=== PATIENT | female | born 1960 | race Caucasian/White ===

== ENCOUNTER → 2018-03-26 09:35 | Outpatient (CLI) | payer MEDICARE, MEDICAID, SELFPAY ==
[2018-03-14 09:51] VITALS: BMI 20.8
[2018-03-14 15:55] VITALS: BMI 20.5
--- NOTE | 2018-03-26 09:38 | AVDS_ITS ---
Reason For Study: Steal syndrome RIGHT RT [place] artery - 138.0 cm/s Volume flow -2573 cc/min RT Anastomosis -200.0 cm/s RT Prox graft - 160.0 cm/s Volume flow - 2529 cc/min RT Mid graft - 208.0 cm/s Volume flow - 29021 cc/min RT Dist graft - 134.0 cm/s Volume flow - 2329 cc/min RT Outflow - 110.0 cm/s Volume flow - 1472 cc/min Radial artery - 12.5 cm/s Ulnar artery - 56.8 cm/s. Interpretation Summary Large flow right upper extremity fistula with diminished radial and ulnar flow consistent with a severe arterial steal. Aneurysmal change 2.6 x 3.15cm mid fistula and 1.84 x 2.8 cm distal fistula Ordering Physician: Harvey Vaughn Referring Physician: Harvey Vaughn Performed By: Beverly Dalton RVT
== END ==
PROVIDERS: Family Provider Internal Medicine; PCP Internal Medicine; Referring Provider Surgery; Visit Provider Surgery
DX: T82.898A Other specified complication of vascular prosthetic devices, implants and grafts, initial encounter (principal); Z99.2 Dependence on renal dialysis
CPT/HCPCS: 93990

== ENCOUNTER 2018-04-04 12:20 | Day surgery (SDC) | payer MEDICARE, MEDICAID, SELFPAY ==
[2018-03-14 15:55] VITALS: BMI 20.5
[2018-03-30 11:56] LABS: Hematocrit 37.6 % (37-47); Hemoglobin 11.2 g/dl (12.0-15.0); Mean Corp Hgb Conc 29.8 g/gl (32-36); Mean Corpuscular Hgb 32.9 pg (27.0-32.0); Mean Corpuscular Volume 110.6 fL (81-99); Platelet Count 216 K/mm3 (150-450); RBC Distribution Width CV 19.7 % (11.6-14.6); RBC Distribution Width SD 77.5 fl (35.1-43.9); White Blood Count 8.2 K/mm3 (4.4-11.0)
[2018-03-30 11:58] LABS: Scan Indicated on CBC? Y/N YES- FLAGS NOTED
[2018-03-30 12:21] LABS: Anion Gap 10 (5-15); BUN 22 mg/dL (7-18); BUN/Creat Ratio 4.3 RATIO (10-20); Chloride 108 mmol/L (98-107); Creatinine, Serum 5.06 mg/dL (0.55-1.02); EST Glomerular Filtration Rate 9 mL/min (>60); Est Glom Filt Rate - Afr Amer 11 mL/min (>60); Glucose 79 mg/dL (74-106); Potassium 3.8 mmol/L (3.5-5.1); Sodium Level 145 mmol/L (136-145)
[2018-04-01 08:38] VITALS: BMI 21.2
[2018-04-04] VITALS (8 sets, daily range): BP systolic 78–116; BP diastolic 48–67; PULSE 58–86; RESP 16–18; TEMP 36.4–37.3; O2SAT 88–96; BMI 20.9
--- NOTE | 2018-04-04 13:43 | DCINST_ITS ---
Discharge Diet: Renal Diet Discharge Activity: May Not Drive - for 1-2 days or while taking narcotic pain medications., May Shower, May Take a Tub Bath - in 5 days. Lifting Restrictions: 5 pounds Keep extremity elevated above heart level: - - Keep arm elevated above the heart level for 3 days. Additional Activity Instructions:: Exercise hand vigorously with a stress ball. Call your doctor if your incision/area has: Continuous Slow Oozing, Sudden Increased Bleeding - apply pressure and call your doctor., Increased Pain/ Swelling, Increased Redness, Foul Smelling Discharge Call your doctor if you observe: Fever of 101 or Higher Suture Line Care: Avoid Pulling/Pushing, Avoid Pinching/Bending Cleanse incision/area with: Keep Dressing Clean & Dry Additional Dressing/Incision Instructions:: Change or remove dressing in one day. May protect with a gauze bandaid. Allergies/Adverse Reactions: Allergies Penicillins Allergy (Unknown, Verified 04/02/18 15:11) Hives Sulfa (Sulfonamide Antibiotics) Allergy (Unknown, Verified 04/02/18 15:11) Unknown SODIUM PENTATHOL Allergy (Uncoded 04/02/18 15:11) Nausea/Vom/Diarrhea Medications to take at Discharge Aspirin [Aspirin EC] 81 mg PO DAILY 03/20/16 Atorvastatin Calcium [Lipitor] 40 mg PO QHS 03/20/16 Clonazepam [Klonopin] 1 mg PO QHS 03/20/16 Lamotrigine [Lamictal] 200 mg PO DAILY 03/20/16 Umeclidinium Brm/Vilanterol Tr [Anoro Ellipta 62.5-25 Mcg INH] 1 puff IH DAILY 03/20/16 Zolpidem Tartrate [Ambien] 10 mg PO QHS 03/20/16 cinacalcet 30 mg tablet 30 mg PO QDAY 03/15/17 sevelamer carbonate 800 mg tablet 800 mg PO TID 03/15/17 furosemide 80 mg tablet 80 mg PO DAILY 12/11/17 lurasidone 40 mg tablet 60 mg PO QHS 12/11/17 vitamin B complex and vitamin C no.20-folic acid 1 mg capsule 1 cap PO DAILY 12/11/17 biotin 5,000 mcg sublingual tablet 5,000 mcg SUBLINGUAL DAILY 03/14/18 Cholecalciferol (VIT D3) [Vitamin D3] 1,000 unit PO DAILY 04/02/18 Primary Care Physician: Linda Allen MD [Primary Care Provider] - Test Results: Test results from this visit will be discussed in further detail at your follow- up appointment, if applicable. Please Follow Up With: Harvey Vaughn MD - [phone] When: Call to make an appointment for follow up in 1 week.
[2018-04-04] MEDS: Bupivacaine 0.5% PF 10 ML VIAL (14:00)
--- NOTE | 2018-04-04 14:43 | OP.PCM_ITS ---
Problem List (1) Arterial steal syndrome Status: Acute Report of Operation Date of Procedure: 04/04/18 Pre-Operative Diagnosis: Right upper extremity transposed basilic vein to brachial artery hemodialysis fistula with arterial steal syndrome to the hand Post-Operative Diagnosis: Same Surgery/Procedure Performed:: Right upper extremity fistula revision with placement of a 6 mm diameter bovine pericardium restricting cuff Description of Surgical Findings:: Timeout and informed consent was obtained. 57-year-old female was taken the operating placement table she underwent monitored anesthesia care clindamycin 900 mg were given intravenous preoperatively the right upper extremity was sterilely prepped and draped 1% lidocaine mixed 50-50 with 0.5% Marcaine was used as a local anesthetic. A total of 7 cc was used. A transverse incision was made at the previous incision sharp and blunt dissection was used to obtain circumferential control around the proximal portion of the fistula at the previously placed bovine patch cuff was identified. I took a new 8 x 80 mm bovine patch and I trimmed it to approximately 6 mm in diameter I wrapped that around the proximal portion of the fistula I used 6-0 Prolene sutures to help restrict and secure. We utilized duplex ultrasound to measure velocities. The patient had a preoperative duplex evaluation showing greater than 2000 cc/min of volume flow. With placement of careful Prolene sutures I was able to get the flow rate down on average between 508 100 cc/min. Inspection of the hand revealed it was nice and pink and now there is a 2+ palpable radial pulse. I felt that the fistula itself still had good flow. I felt that I had achieved adequate restriction. The wound was closed with a deep layer of interrupted 3-0 Vicryl and a superficial layer of running 4-0 Monocryl. Steri-Strips Telfa OpSite dressing applied. Sponge and instrument and needle counts were reported the surgeon be correct. Blood loss was minimal. She tolerated the procedure well was taken to the recovery area in satisfactory condition without apparent complication. Impression successful flow restriction right upper extremity AV fistula with imp roved hand viability noted intraoperatively Harvey Vaughn M.D., F.A.C.S. Type of Anesthesia:: Local MAC Anesthesiologist: Tulio Alba
== END 2018-04-04 16:16 | disposition home or self-care (01) ==
LOC: SDC 12:21 → AC 12:24
PROVIDERS: Family Provider Internal Medicine; PCP Internal Medicine; Referring Provider Surgery; Visit Provider Surgery
PROC: (CPT 36832; principal; 2018-04-04 14:15)
DX: T82.898A Other specified complication of vascular prosthetic devices, implants and grafts, initial encounter (principal); Y83.8 Other surgical procedures as the cause of abnormal reaction of the patient, or of later complication, without mention of misadventure at the time of the procedure; N18.5 Chronic kidney disease, stage 5; Z85.828 Personal history of other malignant neoplasm of skin; F31.9 Bipolar disorder, unspecified; F41.9 Anxiety disorder, unspecified; Z79.899 Other long term (current) drug therapy; Z79.82 Long term (current) use of aspirin; I12.0 Hypertensive chronic kidney disease with stage 5 chronic kidney disease or end stage renal disease; I25.2 Old myocardial infarction; Z87.891 Personal history of nicotine dependence; J44.9 Chronic obstructive pulmonary disease, unspecified; E78.5 Hyperlipidemia, unspecified; Z99.2 Dependence on renal dialysis
CPT/HCPCS: 01844; 36832; 36415; 80048; 85027

== ENCOUNTER → 2018-04-25 12:55 | Outpatient (CLI) | payer MEDICARE, MEDICAID, SELFPAY ==
[2018-04-04 12:51] VITALS: BMI 20.9
--- NOTE | 2018-04-25 12:57 | AVDS_ITS ---
Reason For Study: Arterial steal AV fistula graft RUE RIGHT Prox [place] artery - 121 cm/s Volume flow - 1061 cc/min Prox Anastomosis - 145.0 cm/s Prox graft - 114 cm/s / 541 cm/s Volume flow - 2443 cc/min Mid graft - 104 cm/s Volume flow - 3595 cc/min Dist graft Unable to obtain measurable waveform Outflow - 69.5 cm/s Volume flow - 968 cc/min Radial artery - 11.7 cm/s Ulnar artery - 91.5 cm/s. Interpretation Summary Aneurysmal change right upper AV fistula 1.46 x 2.82cm Increased volume flow analysis consistent with arterial steal and diminished radial artery antegrade flow No improvement from te previous exam of 03/26/18 Ordering Physician: Harvey Vaughn Referring Physician: Linda Allen M.D. Performed By: Beverly Dalton RVT
== END ==
PROVIDERS: Family Provider Internal Medicine; PCP Internal Medicine; Referring Provider Surgery; Visit Provider Surgery
DX: I77.9 Disorder of arteries and arterioles, unspecified (principal); Z99.2 Dependence on renal dialysis
CPT/HCPCS: 93990

== ENCOUNTER 2019-05-09 20:36 | Emergency (ER) | payer MEDICARE, MEDICAID, SELFPAY ==
[2018-04-04 12:51] VITALS: BMI 20.9
[2019-05-09 20:36] VITALS: BP 162/89; PULSE 86; RESP 18; TEMP 36.5; O2SAT 95; BMI 24.0
--- NOTE | 2019-05-09 20:52 | ED.VIS.GEN ---
History of Present Illness Chief Complaint: Other, Pain/Inj Detail of Chief Complaint: Pain, swelling discoloration right arm Informant: Patient Onset: Days - Approximately 2 days ago Context: Sudden Onset Timing: Continuous Quality: Pain Location: Right anterior medial arm Current Severity: Mild Maximum Severity: Moderate Worsened by: Palpation Relieved by: Nothing Associated Symptoms: Loss of thrill and pulse Narrative: Patient is a 59-year-old woman with history of end-stage renal disease not on hemodialysis who had a fistula placed right arm by Dr. Harvey Vaughn approximately 2 years ago. She states it is never been accessed. She is scheduled to see her auditing specialist in the near future. She presents because of discoloration, swelling and pain right arm that started approximate 2 days ago. She denies fever, chills night sweats. There is no history of trauma. She denies paresthesia, anesthesia or motor weakness. She states she does not feel the rumbling when she palpates the area. Prior similar symptoms: No Recent Illness/Hospitalization: No - Past Medical History (1) Arterial steal syndrome Status: Acute (2) COPD (chronic obstructive pulmonary disease) Status: Acute (3) Hyperlipidemia Status: Acute (4) Presence of surgically created arteriovenous shunt for hemodialysis Status: Acute (5) Renal failure Status: Acute (6) S/P hysterectomy Status: Acute Past Medical History - Allergies and Home Meds Allergies/Adverse Reactions: Allergies Penicillins Allergy (Unknown, Verified 05/09/19 20:39) Hives Sulfa (Sulfonamide Antibiotics) Allergy (Unknown, Verified 05/09/19 20:39) Unknown SODIUM PENTATHOL Allergy (Uncoded 05/09/19 20:39) Nausea/Vom/Diarrhea Primary Care Physician: Linda Allen MD [Primary Care Provider] - Prior records reviewed: Yes Surgical History: - - Fistula right arm Lives: Alone Smoking Status: Former smoker Alcohol: None Drugs: None Review of Systems General: Denies: Chills, Fever, Malaise, Subjective, Sweats Eyes: Denies: Visual changes - bilaterally, Blurred Vision - bilaterally Cardiovascular: Denies: Chest pain, Palpitations, Heart racing Respiratory: Denies: Dyspnea, Cough, Dyspnea on exertion Gastrointestinal: Denies: Abdominal pain, Nausea, Vomiting, Diarrhea, Melena, Hematochezia Musculoskeletal: Reports: Swelling, Extremity Pain. Denies: Myalgias, Arthralgias, Neck pain, Back pain Skin: Denies: Rash, Wounds Neurological: Denies: Weakness, Parasthesia, Numbness Allergy: Denies: Uticaria, Swelling of the mouth Physical Exam Vital Signs/Narrative: Vital Signs Temp Pulse Resp BP Pulse Ox 05/09/19 20:36 97.7 F L 86 18 162/89 H 95 Inital Vital Signs reviewed: Yes General: Well nourished, Well developed, No Acute Distress Head: Normocephalic, Atraumatic. Negative for: Trauma, Tenderness Eyes: Perrl, EOMI. Negative for: Pale conjunctiva, Scleral icterus ENT: Moist mucous membranes, No rhinorrhea, TM's clear Neck: Supple, Nontender, No lymphadenopathy, No JVD Cardiovascular: Regular rate, Regular rhythm, No murmurs, Normal S1, Normal S2 Extremities: Tenderness, Edema, - - There is swelling with mild edema and discoloration of the right arm. There is no thrill, palpable pulse over the fistula site. Skin: Normal color, No rash. Negative for: Cyanosis, Diaphoresis, Jaundice, No Trauma Neurological: Alert, Oriented x3, Cranial nerves II-XII grossly intact, Normal Strength, Normal Sensation Psychological: Normal affect, Normal Mood Diagnostic/Tx/Re-eval - Medical Decision Making Case was discussed with Dr. Mercado who is on-call for Dr. Harvey Vaughn. He agrees patient needs arterial/AV vascular lab study to confirm clot. The atrial venous fistula study was ordered and will have patient call for time tomorrow morning when lab is open.. ED Disposition - Plan for ED Patient: Disposition: Home or Assisted Living Diagnosis: AV fistula occlusion Instructions: Arteriovenous (AV) Fistula for Dialysis Prescriptions: Oxycodone HCl/Acetaminophen [Percocet 5/325] 1 tab PO Q6H PRN PRN 3 Days #12 tab PRN Reason: Pain Prescription Printed Referrals: Linda Allen MD [Primary Care Provider] - Harvey Vaughn MD [STAFF PHYSICIAN] - As soon as possible Additional Instructions: Call tomorrow morning to confirm appointment time. Telephone number is [phone].
[2019-05-09] MEDS: oxyCODONE HCl Cr 10 MG Tablet PO (21:09)
[2019-05-09 21:17] VITALS: BP 162/86; PULSE 86; RESP 18; O2SAT 95
== END 2019-05-09 21:18 | disposition home or self-care (01) ==
LOC: ED 21:13
PROVIDERS: Emergency Provider Emergency Medicine; PCP Internal Medicine
DX: T82.898A Other specified complication of vascular prosthetic devices, implants and grafts, initial encounter (principal); N18.6 End stage renal disease; E78.5 Hyperlipidemia, unspecified; J44.9 Chronic obstructive pulmonary disease, unspecified; Z79.82 Long term (current) use of aspirin; Z79.899 Other long term (current) drug therapy; Z87.891 Personal history of nicotine dependence
CPT/HCPCS: 99283

== ENCOUNTER → 2019-05-12 14:01 | Outpatient (CLI) | payer MEDICARE, MEDICAID, SELFPAY ==
[2019-05-09 20:36] VITALS: BMI 24.0
--- NOTE | 2019-05-12 14:03 | AVDS_ITS ---
Reason For Study: Pain RIGHT Right inflow artery 53.2 cm/sec. Right inflow artery 223.3 ml/min. Prox anastamosis 26.2 cm/sec. Prox anastamosis 46.2 ml/min. Graft is occluded throughout. Outflow vein 23.9 cm/sec. Outflow vein 181.2 ml/min. Cephalic vein at shoulder has venous flow noted. Cephalic vein below antecube is compressible. Ulnar and Radial artery color flow noted. Prelim to Rachel. Interpretation Summary Acute thrombosis transposed right upper arm cephalic vein to brachial artery arteriovenous hemodialysis fistula. Patent right cephalic vein at the shoulder Patent right brachial, radial, and ulnar arteries Ordering Physician: Harvey Vaughn Referring Physician: Linda Allen M.D. Performed By: Maame Gray RVT
== END ==
PROVIDERS: PCP Internal Medicine; Referring Provider Surgery; Visit Provider Surgery
DX: T82.868A Thrombosis due to vascular prosthetic devices, implants and grafts, initial encounter (principal); M79.89 Other specified soft tissue disorders; M79.603 Pain in arm, unspecified
CPT/HCPCS: 93990

== ENCOUNTER → 2020-07-05 10:48 | Outpatient (CLI) | payer MEDICARE, MEDICAID, SELFPAY ==
[2020-07-01 13:45] VITALS: BMI 24.0
--- NOTE | 2020-07-05 10:52 | AVDS_ITS ---
Reason For Study: Dependence on renal dialysis graft RIGHT Right inflow artery 42.1 cm/sec. Right inflow artery 90 ml/min. Prox anastamosis 45 cm/sec. Prox anastamosis 83.9 ml/min. Prox graft, 24.6 cm/sec. Prox graft, 278.2 ml/min. Graft is occluded throughout. Cephalic vein [place] and below antecube is compressible. Ulnar artery, 49.7 cm/sec. Radial artery, 20.4 cm/sec. Area of concern is in prox graft with vascular flow noted. Area with flow measures 1.03 x 1.31 x 0.81 cm. No abnormal flow outside of vessel. VL/AV Fistula/Dialysis Graft Scan Interpretation Summary Occluded right upper extremity brachial to cephalic arteriovenous hemodialysis fistula. Area of aneurysmal change with partial thrombosis adjacent to the anastomosis. This area measures 1.03 x 1.31 x 0.81 cm Normal right brachial artery flow at 42.1 cm/s. Normal right ulnar flow at 49.7 cm/s. Slightly diminished right radial flow at 20.4 cm/s Ordering Physician: Felicity Hinds Referring Physician: Linda Allen M.D. Performed By: Maame Gray RVT
== END ==
PROVIDERS: PCP Internal Medicine; Referring Provider Physician Assistant; Visit Provider Physician Assistant
DX: I72.1 Aneurysm of artery of upper extremity (principal); Z99.2 Dependence on renal dialysis
CPT/HCPCS: 93990

== ENCOUNTER 2020-08-18 06:37 | Day surgery (SDC) | payer MEDICARE, MEDICAID, SELFPAY ==
[2020-07-05 05:34] VITALS: BMI 24.0
--- NOTE | 2020-08-12 10:58 | EKG12_ITS ---
Test Reason : PRE OP Blood Pressure : / mmHG Vent. Rate : 058 BPM Atrial Rate : 058 BPM P-R Int : 156 ms QRS Dur : 076 ms QT Int : 430 ms P-R-T Axes : 069 040 071 degrees QTc Int : 422 ms Sinus bradycardia Septal infarct , age undetermined Abnormal ECG Confirmed by RANJIT CLARKE, DAREN ([id number]), video clerk BUDDY ARENAS ([id number]) on 08/13/2020 10:48:40 A M Referred By: Harvey Vaughn Confirmed By:JARRED CHURCH MD
[2020-08-12 11:36] LABS: Hematocrit 37.3 % (37-47); Hemoglobin 11.5 g/dL (12.0-15.0); Mean Corp Hgb Conc 30.8 g/dL (32-36); Mean Corpuscular Hgb 33.7 pg (27.0-32.0); Mean Corpuscular Volume 109.4 fL (81-99); Mean Platelet Vol. 9.6 fl (6.2-12.0); Platelet Count 195 K/mm3 (150-450); RBC Distribution Width CV 13.3 % (11.6-14.6); RBC Distribution Width SD 54.1 fl (35.1-43.9); Red Blood Count 3.41 M/mm3 (4.2-5.4); White Blood Count 5.9 K/mm3 (4.4-11.0)
[2020-08-12 12:09] LABS: Anion Gap 4 (5-15); BUN 12 mg/dL (7-18); BUN/Creat Ratio 6.7 RATIO (10-20); Chloride 111 mmol/L (98-107); Creatinine, Serum 1.78 mg/dL (0.55-1.02); EST Glomerular Filtration Rate 31 mL/min (>60); Est Glom Filt Rate - Afr Amer 38 mL/min (>60); Glucose 82 mg/dL (74-106); Sodium Level 140 mmol/L (136-145)
--- NOTE | 2020-08-18 07:04 | HP.PCM_ITS ---
History and Physical Date of Admission: 08/18/20 Intake Visit Reasons: Fistula Chief Complaint: recheck fistula, hand numbness Portfolio Administrator Required: No Is patient in pain?: No Allergies Penicillins Allergy (Unknown, Verified 07/01/20 13:41) Hives Sulfa (Sulfonamide Antibiotics) Allergy (Unknown, Verified 07/01/20 13:41) Unknown SODIUM PENTATHOL Allergy (Uncoded 07/01/20 13:41) Nausea/Vom/Diarrhea Medications aspirin 81 mg PO DAILY 03/20/16 [History Confirmed 07/05/20] clonazepam 1 mg PO QHS 03/20/16 [History Confirmed 07/05/20] lamotrigine 200 mg PO DAILY 03/20/16 [History Confirmed 07/05/20] umeclidinium-vilanterol 1 puff IH DAILY 03/20/16 [History Confirmed 07/05/20] zolpidem 10 mg PO QHS 03/20/16 [History Confirmed 07/05/20] biotin 5,000 mcg sublingual tablet 5,000 mcg SUBLINGUAL DAILY 03/14/18 [History Confirmed 07/05/20] Prednisone 5 mg PO QHS 05/09/19 [History Confirmed 07/05/20] bupropion HCl 150 mg PO DAILY 05/09/19 [History Confirmed 07/05/20] lurasidone 60 mg PO DAILY 05/09/19 [History Confirmed 07/05/20] valacyclovir 500 mg PO DAILY 05/09/19 [History Confirmed 07/05/20] atorvastatin 40 mg tablet 20 mg PO QHS tab 07/01/20 [History Confirmed 07/05/20] metoprolol succinate 25 mg tablet,extended release 24 hr 25 mg PO DAILY 07/01/20 [History Confirmed 07/05/20] mycophenolate sodium 360 mg tablet,delayed release 720 mg PO BID 07/01/20 [History Confirmed 07/05/20] pantoprazole 40 mg tablet,delayed release 40 mg PO DAILY 07/01/20 [History Confirmed 07/05/20] tacrolimus 1 mg capsule, immediate-release 1 mg PO Q12H 07/01/20 [History Confirmed 07/05/20] Is last menstrual period known: No Post menopausal: Yes Patient : No PFSH Medical History Abnormal mammogram of left breast Arterial steal syndrome COPD (chronic obstructive pulmonary disease) Hyperlipidemia Problem with dialysis access Pulsatile mass of upper extremity Renal failure Upper extremity aneurysm Surgical History Presence of surgically created arteriovenous shunt for hemodialysis Renal transplant recipient s/p fistula revision S/P hysterectomy S/P kidney transplant Family History Mother Diabetes Hypertension Heart disease Cancer Skin cancer Father Diabetes Hypertension Cancer Skin cancer Brother Thyroid disorder Cancer skin Social History Smoking Status: Former smoker second hand exposure: No alcohol intake: never substance use type: does not use caffeine: Yes what type of physical activity do you participate in: none frequency: does not exercise seatbelt use: always HPI HPI HPI: DELLA SANDY, is a 60 F who presents to the office today for surgical consultation regarding what appears to be an aneurysmal right extremity brachiocephalic arteriovenous hemodialysis fistula. The patient just had duplex imaging today. It demonstrates that the majority of the fistula is thrombosed. There appears to be aneurysmal change of the proximal byrd of the fistula with distention of the vein. She has a history of 2 previous restricting coughs placed in this general vicinity. The fistula itself probably thrombosed a year ago. For 2 years she has had a renal transplant functioning well. The fistula itself worked well during the time that she needed it but as noted she has not had it utilized for 2 years and has been thrombosed at least for 1 year. She feels that the area of swelling at the antecubital crease has been slowly enlarging in size. It is not painful. She denies any discomfort with her hand. Report of Operation Date of Procedure: 04/04/18 Pre-Operative Diagnosis: Right upper extremity transposed basilic vein to brachial artery hemodialysis fistula with arterial steal syndrome to the hand Post-Operative Diagnosis: Same Surgery/Procedure Performed:: Right upper extremity fistula revision with placement of a 6 mm diameter bovine pericardium restricting cuf May 12, 2019 RIGHT Right inflow artery 53.2 cm/sec. Right inflow artery 223.3 ml/min. Prox anastamosis 26.2 cm/sec. Prox anastamosis 46.2 ml/min. Graft is occluded throughout. Outflow vein 23.9 cm/sec. Outflow vein 181.2 ml/min. Cephalic vein at shoulder has venous flow noted. Cephalic vein below antecube is compressible. Ulnar and Radial artery color flow noted. Prelim to Rachel. Interpretation Summary Acute thrombosis transposed right upper arm cephalic vein to brachial artery arteriovenous hemodialysis fistula. Patent right cephalic vein at the shoulder Patent right brachial, radial, and ulnar arteries ROS General General: No weight change, appetite, fatigue, colon cancer, breast cancer or weakness HEENT HEENT: No difficulty swallowing, eye injury, eye surgery, swollen glands or hoarseness Endo Endocrine: No thyroid disease, diabetes mellitus, thyroid cancer, Hair loss, heat intolerance or cold intolerance Musc Musculoskeletal: No back problems, arthritis, rheumatoid arthritis, gout or joint pain Cardio Cardiovascular: Yes high blood pressure and heart attack; No murmur, pacemaker, heart disease, atrial fibrillation, heart stent, palpitations, shortness of breat with exertion or chest pain Psych Psychiatric: Yes depression and anxiety; No hearing voices Resp Respiratory: No shortness of breath, No sleep apnea, No cough, Yes COPD, No asthma, No emphysema and No wheezing Gastro Gastrointestinal: No abdominal pain, No nausea or vomiting, No diarrhea, No constipation, No blood in stool, No acid reflux, No hemorrhoids, Yes ulcers, Yes gallbladder problem and No black,tarry stools Jamar Hematologic: No blood thinners, No blood disorders, No bleeding, No anemia and No blood clots Neuro Neurologic: No weakness Exam Const General: cooperative [facility] Head: normal to inspection Eyes General: appearance normal, both eyes and all related structures Resp Effort & Inspection: normal respiratory effort Auscultation: clear to auscultation bilaterally Cardio Rate: regular rate Rhythm: regular rhythm GI Palpation: soft and no hepatosplenomegaly Neuro General: patient alert and patient awake Cognition: normal cognition Extrem Other: Right upper extremity has scarring in the upper arm from multiple previous IV access sites for her fistula. Just proximal to the antecubital crease there is a bulbous pulsatile mass. On ultrasound inspection this is partially thrombosed but clearly has aneurysmal change of the byrd adjacent to the arterial anastomosis. The brachial artery itself appears otherwise intact COVID (Procedure Consent) Procedure Criteria Procedure Criteria: Yes Elective The surgeon/proceduralist and patient have discussed in detail the risk of exposure to and/or potential harm posed by the COVID-19 virus with having a surgery/procedure at this time versus the risk of delaying the surgery/procedure. It is not possible to know either the risk of delaying the surgery or procedure or chance of getting an infection with perfect accuracy, but a joint decision was made between the patient and the surgeon/proceduralist to proceed at this time with the scheduled chary roxann/procedure as indicated on the consent form. Assessment and Plan Assessment and Plan (1) Upper extremity aneurysm: Status: Acute (2) Renal transplant recipient: Status: Acute (3) Pulsatile mass of upper extremity: Status: Acute Qualifiers: Laterality: right Qualified Code(s): R22.31 - Localized swelling, mass and lump, right upper limb Plan Details Additional Comments: There is slow progression of the aneurysmal change of the byrd of the transposed cephalic vein to brachial artery AV fistula. The majority of the fistula has long ago thrombosed however the fluid remains only partially thrombosed and progressively aneurysmal. I propose for her a evaluation of the area. I would anticipate an upper arm tourniquet with then under monitored incision care local anesthetic a direct cutdown upon the area opening of the byrd of the fistula and evacuation of the thrombus and then majority excision of the vein graft down to but not hopefully including the artery so as to not cause a stricture. The patient is very much aware of the risks of the surgical intervention including diminished blood flow to the hand. She has had an opportunity to ask and have questions answered. The slow progressive enlargement of this aneurysmal change however suggest that elective interaction with this fistula prior to skin compromise would be pertinent. She has had an opportunity to ask and have questions answered. We will schedule and proceed at her discretion. I appreciate the ongoing opportunity of assisting with surgical care Her renal transplant was May 29, 2018 Copy: Dr. Linda Vaughn M.D., F.A.C.S. Since the patient's office visit and evaluation she has had no clinical change. No pain in the right upper extremity. She has a 2+ right radial pulse. The aneurysmal hold of the right extremity AV fistula remains similar to previously. There is no erythema or ulceration of the skin. I anticipate a local exploration of the area with repair of the right brachial artery and evacuation of the thrombus within the aneurysmal change of the proximal portion of the fistula. She is aware of the technique, benefit, risk, alternatives. Her renal transplant is functioning well. Harvey Vaughn M.D., F.A.C.S.
--- NOTE | 2020-08-18 07:06 | EX.PCM.DISCH ---
Discharge Instructions Procedure General Surgery Activity Discharge Activity: May Not Drive (for 3-5 days or while taking narcotic pain medicine.) May shower in (days): 1 Lifting Restrictions: 10 pounds Dressing / Incision Call your doctor if your incision/area has: Continuous Slow Oozing, Sudden Increased Bleeding, Increased Pain/ Swelling, Increased Redness and Foul Smelling Discharge Call your doctor if you observe: Fever of 101 or Higher Suture Line Care: Avoid Pulling/Pushing and Avoid Pinching/Bending Additional Dressing/Incision Instructions:: Change or remove dressing in 4 days. Leave steri-strips in place for 1 week. Follow Up Care Please Follow Up With: Harvey Vaughn MD When: Call [phone] to make an appointment to be seen in about 10 days. Test Results: Test results from this visit will be discussed in further detail at your follow-up appointment, if applicable. Discharge Plan Admission Primary Reason for Your Visit: Right upper extremity aneurysm Attending Provider: Harvey Vaughn Primary Care Provider: Linda Allen Discharge Orders/Prescriptions Prescriptions: Continued metoprolol succinate 25 mg tablet extended release 24 hr 25 mg PO DAILY RF: 0 mycophenolate sodium [Myfortic] 360 mg tablet,delayed release (DR/EC) 720 mg PO BID RF: 0 pantoprazole 40 mg tablet,delayed release (DR/EC) 40 mg PO DAILY RF: 0 tacrolimus 1 mg capsule 1 mg PO QHS RF: 0 clonazepam [Klonopin] 1 MG tablet 1 mg PO QHS RF: 0 aspirin 81 MG tablet,delayed release (DR/EC) 81 mg PO DAILY RF: 0 zolpidem 10 MG tablet 10 mg PO QHS RF: 0 lamotrigine 100 MG tablet 200 mg PO DAILY RF: 0 Anoro Ellipta 1 EACH blister with device 1 puff IH DAILY RF: 0 atorvastatin 40 mg tablet 20 mg PO QHS RF: 0 valacyclovir 500 MG tablet 500 mg PO DAILY RF: 0 bupropion HCl [Wellbutrin SR] 150 MG tablet sustained-release 12 hr 150 mg PO DAILY RF: 0 Latuda 60 MG tablet 60 mg PO DAILY RF: 0 sulfamethoxazole-trimethoprim [Bactrim DS] 800-160 mg tablet 1 tab PO MOWEFR RF: 0 tacrolimus 1 mg Capsule 1.5 mg PO 0900 RF: 0 amlodipine 5 mg tablet 5 mg PO DAILY RF: 0 Referrals / Follow Up: Linda Allen MD [Primary Care Provider] - Disposition Disposition (needs filled in before D/C Order can be placed): Home, Self Care
[2020-08-18 07:23] VITALS: BP 125/70; PULSE 62; RESP 16; TEMP 37.2; O2SAT 94; BMI 23.1
[2020-08-18] MEDS: Lidocaine 1% (30 ml sdv) 30 ML Vial (08:25)
--- NOTE | 2020-08-18 08:55 | FIST_PTH ---
PATIENT: DELLA SANDY LOC: [facility] – [place] U#:[id number] AGE/SX: 60/F ROOM: RE08/18/[address]: Dr. Harvey Vaughn MD : 1960 BED: DIS: 08/18/2020 SPEC #: [id number] RECD: 08/18/20 11:19 STATUS: RILEY RAY #: [id number] JAIRO: 08/18/20 08:[address]: Harvey Vaughn DEPT: SURGICAL PATHOLOGY RECD BY: Connie Barragan ENTERED: 08/18/20 12:25 SP TYPE: Fistula OTHR DR: Dr. Linda Allen MD Tissues: Upper extremity, NOS Procedures: Surgery Specimen Level III HEADER OPERATION: Upper extremity arteriovenous fistula aneurysm excision PRE-OP DIAGNOSIS: Upper extremity aneurysm; renal transplant recipient; pulsatile mass of upper extremity TISSUE SUBMITTED: Fistula/brachial artery aneurysm MICROSCOPIC DIAGNOSIS Fistula/brachial artery aneurysm, excision: Consistent with AV fistula aneurysm with reactive changes. ELHAM:neto 08/19/2020 MICROSCOPIC DESCRIPTION Slides are reviewed. GROSS DESCRIPTION Received in fixative is one container labeled with the patient's name and designated fistula/brachial artery aneurysm. The specimen consists of four variable sized pieces of pink, congested soft tissue measuring in aggregate 3 x 2.5 x 1 cm. The largest piece is serially sectioned. The entire specimen is submitted in two cassettes as follows: 1 - the largest piece, 2 - rest of the specimen. / ELHAM:neto 08/18/20 TC:5 CPT: 76041
[2020-08-18] MEDS: Heparin Injection (Vial) 5,000 UNIT/ML VIAL 5000 UNIT (09:00)
[2020-08-18] MEDS: Bupivacaine Mpf 0.5% 30 ML VIAL (09:25)
--- NOTE | 2020-08-18 09:25 | OP.PCM_ITS ---
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 60-year-old female was taken to the operating placed upon the table underwent monitored anesthesia care clindamycin 900 mg were given intravenously. The right upper extremity was sterilely prepped and draped. 1% lidocaine mixed 50- 50 with 0.5% Marcaine was used as a local anesthetic. A total of 7 cc was used. Local was instilled. Then a transverse ellipse of skin to include 2 previous oblique skin scars were excised. That skin was discarded. A tourniquet was then inflated to 250 mmHg pressure. A total of 19 minutes. After inflation of the tourniquet the patient did receive 5000 units of heparin. Sharp and blunt dissection was used to identify the venous hold of the previous thrombosed AV fistula. This was dissected down to the brachial artery. With the tourniquet inflated the aneurysm was then incised and mural debris was removed. The proximal and distal orifice of the brachial artery identified. The aneurysm sac was trimmed down to what was felt to be brachial artery. The brachial artery was then repaired longitudinally with a running 6-0 Prolene. There is good antegrade and retrograde flow. The anastomosis was completed. Good hemostasis. The hand immediately pinked up and appeared to be viable as the tourniquet had been discontinued. The artery was carefully inspected it appeared to be intact there appeared to be adequate flow hand appeared to be viable with Doppler signals intact. Surgicel was placed to assist with hemostasis. Subcutaneous tissues were approximated running 3-0 Vicryl. Skin edges proximal and septic or 4-0 Monocryl. Steri-Strips Telfa OpSite dressing applied by applied gentle soft roll wrap and gentle Sean wrap. Sponge and instrument and needle counts were reported to the surgeon to be correct. Specimen includes aneurysm sac and mural debris. Drains none. Blood loss minimal. The patient was taken to the recovery area in satisfactory addition without apparent complication Harvey Vaughn M.D., F.A.C.S. Surgeon: Harvey Vaughn Type of Anesthesia: Local MAC Anesthesiologist: Sourav Serrano
[2020-08-18 09:45] VITALS: BP 114/59; BP 125/70; PULSE 68; RESP 16; TEMP 36.8; O2SAT 92
[2020-08-18 09:50] VITALS: BP 106/62; BP 125/70; PULSE 65; RESP 14; O2SAT 94
[2020-08-18 09:55] VITALS: BP 110/68; BP 125/70; PULSE 66; RESP 16; O2SAT 92
[2020-08-18 10:00] VITALS: BP 113/74; BP 125/70; PULSE 59; RESP 16; TEMP 36.8; O2SAT 97
[2020-08-18 11:01] VITALS: BP 101/54; BP 125/70; PULSE 70; RESP 16; TEMP 36.2; O2SAT 90
--- NOTE | 2020-08-18 11:16 | SUR.PHASEII ---
Patient watched until [address] Vuaghn's order. Patient VSS. Sean wrap in place on right upper arm. +2 Pedal pulse in right radial. Cap refill <3 seconds. Warm to touch.
== END 2020-08-18 11:23 | disposition home or self-care (01) ==
LOC: SDC 06:38 → AC 06:38
PROVIDERS: PCP Internal Medicine; Referring Provider Surgery; Visit Provider Surgery
PROC: (CPT 36838; principal; 2020-08-18 08:40)
DX: T82.898A Other specified complication of vascular prosthetic devices, implants and grafts, initial encounter (principal); I72.1 Aneurysm of artery of upper extremity; Z94.0 Kidney transplant status; J44.9 Chronic obstructive pulmonary disease, unspecified; E78.5 Hyperlipidemia, unspecified; F31.9 Bipolar disorder, unspecified; Z79.82 Long term (current) use of aspirin; Z78.0 Asymptomatic menopausal state; Z79.899 Other long term (current) drug therapy; Z87.891 Personal history of nicotine dependence; I25.2 Old myocardial infarction; I10 Essential (primary) hypertension; Z87.442 Personal history of urinary calculi
CPT/HCPCS: 01844; 36838; 36415; 80048; 85027; 88304; 93005; J7040; J2405